=== PATIENT | male | born 1960 | race Caucasian/White ===

== ENCOUNTER 2017-01-12 08:20 | Day surgery (SDC) | payer OTHER ==
[~2017-01-12] VITALS: Ht 180.3 cm; Wt 83.9 kg
[~2017-01-12 08:20] MED LIST: 0.9% Sodium Chloride 1,000 ML IV SCH; FLAX100038 PO; HYDR25TA4 PO; LOSA50TA37 PO; OMEG1CAP56 PO; SILD20TA14 PO; Sodium Chloride LOK Flush 10 mL Syringe IV PRN; fentaNYL-PF 50 mCg/mL 2 mL Inj IVPUSH PRN
[2017-01-12 09:08] VITALS: BP 129/91; PULSE 70; O2SAT 100
[2017-01-12] MEDS ORDERED: 0.9% Sodium Chloride 1,000 ML IV ONE (10:17)
[2017-01-12 10:20] VITALS: BP 119/79; PULSE 62; RESP 16; O2SAT 99
[2017-01-12 10:26] VITALS: BP 141/83; PULSE 68; RESP 16; O2SAT 100
--- NOTE | 2017-01-12 14:02 | ENDO ---
[address] [address] ENDOSCOPY PROCEDURE PATIENT: VAHID IYER : 1960 MR#: [id number] ADMIT: 01/12/2017 JOB ID: [id number] PROCEDURE: Colonoscopy. INDICATION: Patient with a family history of colon cancer. ANESTHESIA: Patient's ASA classification is two. Mallampati score is two. MEDICATIONS: 1. Versed 5 mg. 2. Fentanyl 100 mcg INSTRUMENT USED: PCF H 180 AL. PREPARATION QUALITY: Good. PROCEDURE DETAILS: After informed consent was obtained, the patient was brought to the GI suite, where he was placed on oxygen via nasal cannula and monitored with continuous pulse oximeter, telemetry, and blood pressure monitoring. A time-out was performed, then he was placed in the left lateral decubitus position and medications were administered for sedation. Digital rectal exam with palpation of the prostate was performed, which was unremarkable. The colonoscope was then inserted into the rectum and advanced under direct visualization to the cecum, which was identified by the presence of the ileocecal valve and appendiceal orifice. Once the cecum was reached, the colonoscope was withdrawn back into the rectum as the mucosa and lumen were examined. In the rectum, retroflexion was performed. Following retroflexion, the remaining air in the rectum was suctioned and the procedure was completed. FINDINGS: 1. In the transverse colon, there was a diminutive polyp that was removed with cold biopsy forceps. 2. In the rectum there was an approximately 4-5 mm sessile polyp that was removed with a cold snare. IMPRESSION: 1. Transverse colon polyp. 2. Rectal polyp. RECOMMENDATIONS: Repeat colonoscopy in five years. COMPLICATIONS: None. ESTIMATED BLOOD LOSS: Less than 5 mL.
--- NOTE | 2017-01-15 14:18 | PATH ---
SURGICAL PATHOLOGY Attending Physician:Gracia Neri CASE STATUS: Signed Out PATIENT NAME: VAHID IYER PID: [id number] : 1960 DATE COLLECTED:01/12/2017 22:25 SPECIMEN: 1: Colon, Polyp 2: Rectum, Biopsy CLINICAL HISTORY: 1). TRANSVERSE POLYP 2). RECTAL POLYP FINAL DIAGNOSIS: 1.TRANSVERSE COLON POLYP: TUBULAR ADENOMA. 2.RECTAL POLYP: TUBULAR ADENOMA. ICD10 D12.6 GROSS DESCRIPTION: The specimens are received in formalin, labeled with the patient's name and sublabeled as the following: (1) transverse polyp; (2) rectal polyp. (1) The specimen consists of multiple fragments of hurt-white, glistening, semi-translucent tissue (0.6 x 0.5 x 0.1 cm in aggregate). Section code: (1A) tissue. Specimen entirely submitted. (1) The specimen consists of a reyes-white, glistening, rubbery sessile polyp (0.6 x 0.3 x 0.2 cm). Ink code: black-resection margin. Section code: (2A) polyp, bisected. Specimen entirely submitted. ([id number]) MICRO DESCRIPTION: See diagnosis. ICD-9 CODES: CPT CODES: 1: 79011 2: 27260 Electronically Signed Out Dagoberto Olsen MD [facility] [address], [place] [address] Technical component performed at [facility], [facility] [address], [place], [address]
== END 2017-01-12 23:59 | disposition home or self-care (01) ==
LOC: END 08:20
PROVIDERS: ATTEND Internal Medicine Gastroenterology
DX: Z12.11 Encounter for screening for malignant neoplasm of colon (principal); D12.3 Benign neoplasm of transverse colon; D12.8 Benign neoplasm of rectum; Z80.0 Family history of malignant neoplasm of digestive organs; I10 Essential (primary) hypertension; E78.5 Hyperlipidemia, unspecified; G47.33 Obstructive sleep apnea (adult) (pediatric)
CPT/HCPCS: 45380; 45385; 88305; G0500; J2250; J3010; J7030